=== PATIENT | male | born 1945 | race Caucasian/White ===

== ENCOUNTER 2023-10-07 12:15 | Inpatient (IN) ==
[2023-10-07] MEDS: SODIUM CHLORIDE 0.9% 1,000 ML IV STA (12:49)
[2023-10-07 13:14] LABS: Basophils # (auto) 0.03 K/uL (0.00-0.20); Basophils % (auto) 0.4 %; Eosinophils # (auto) 0.24 K/uL (0.00-0.50); Eosinophils % (auto) 3.2 %; Hematocrit (blood only) 35.3 % (42.0-52.0); Hemoglobin 12.3 g/dl (14.0-18.0); Immature Granulocytes # (auto) 0.08 K/uL (0.01-0.20); Immature Granulocytes % (auto) 1.1 %; Lymphocytes # (auto) 1.31 K/uL (1.20-3.40); Lymphocytes % (auto) 17.2 %; Mean Corpuscular Hemoglobin 30.8 pg (25.0-34.0); Mean Corpuscular Hgb Conc 34.8 g/dL (32.0-36.0); Mean Corpuscular Volume 88.5 fL (80.0-100.0); Monocytes # (auto) 0.69 K/uL (0.11-0.59); Monocytes % (auto) 9.1 %; Neutrophils # (auto) 5.26 K/uL (1.40-6.50); Platelet Count 193 K/uL (130-400); RDW Coefficient of Variation 12.7 % (11.5-14.5); RDW Standard Deviation 41.1 fL (36.4-46.3); Red Blood Count 3.99 M/uL (4.70-6.10); White Blood Count 7.61 K/ul (4.8-10.8)
[2023-10-07 13:16] LABS: Albumin Globulin Ratio 1.6 (0.9-2); Albumin Level 4.1 gm/dl (3.4-5.0); BUN Creatinine Ratio 14.6 (10-20); Bilirubin,Total 0.5 mg/dl (0.2-1.0); Calcium 8.7 mg/dl (8.6-10.3); Creatinine Clr Calc Pharmacy 74.4 ml/min; Est GFR (African American) 86.2 ml/min; Est GFR (Non-African American) 74.4 ml/min; Globulin 2.5 gm/dl (2.5-4.0); Potassium 3.9 mmol/L (3.5-5.1); Total Protein 6.6 gm/dl (6.0-8.3)
[2023-10-07 13:22] LABS: INR 1.1 (0.9-1.1); Partial Thromboplastin Ratio 0.9; Partial Thromboplastin Time 25 Seconds (21-31); Prothrombin Time 11.4 Seconds (9.0-12.0)
[2023-10-07] MEDS: OPTIRAY 320 100ml IV ONE (13:54)
--- NOTE | 2023-10-07 14:33 | CT Scan Report ---
CT abd pelvis IV con only CLINICAL HISTORY: GIB x 3-4 days, ?upper TECHNIQUE: Helical axial images of the abdomen and pelvis were obtained and displayed. Automated dose lowering techniques and/or adjustment according to patient size were utilized for this exam. This e xam was performed with intravenous contrast. CT DOSE: 1497.36 mGy.cm COMPARISON: None available at the time of this dictation. FINDINGS: Lower chest: Bibasilar atelectasis versus scarring is seen. Liver: Hepatic steatosis is noted. Focal fatty changes are seen about the falciform ligament. Gallbladder and biliary tree: Patient is status post cholecystectomy. No intra- or extrahepatic bilia ry ductal dilation. Pancreas: The pancreas is atrophic. Spleen: Splenule is incidentally noted. Adrenals: Unremarkable. Kidneys and ureters: Subcentimeter hypodensities are too small to characterize. Bladder: Unremarkable. Reproductive organs: Prostatomegaly is seen. Bowel: Diverticulosis is seen without diverticulitis. The appendix is normal. Lymph nodes Retroperitoneal: Unremarkable. Pelvic: Unremarkable. Mesenteric: Unremarkable. Peritoneum: Normal. Vessels: Atherosclerotic calcifications are seen. IVC filter is seen. Abdominal wall: A fat-containing umbilical hernia is seen. Bones: Degenerative changes in the visualized spine. IMPRESSION: 1. No acute abnormalities to explain GI bleed. 2. Diverticulosis without diverticulitis. 3. Hepatic steatosis. 4. Additional findings as above. ACT 112: Negative or not required by law. Electronically signed by: Harlan Ferreira M.D. 10/07/2023 2:32 PM
--- NOTE | 2023-10-07 15:02 | History & Physical Report ---
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 Seen in on 10/04/2023 for rectal bleeding. At that time had Hgb of 15 and INR of 2.6 and was given Vitamin K 5mg po. Warfarin has been held. Still taking 81mg aspirin Suspect upper GI bleed with melena In ER hypertensive, otherwise vitals stable. Hgb: 12 from 15 on 10/04/2023, INR: 1.1 +Hemoccult stool in ER of dark red tinge color stool reported Start PPI IV Type and cross and hold PRBC's. Monitor H&H Clear liquid diet NPO midnight Hold aspirin and warfarin GI consult CBC, BMP in am Blood consent was obtained from the patient as delegated by Dr. Campa. Risks and benefits were explained. All questions were answered, and the patient (or patient delegate) was offered the opportunity to discuss with attending physician and declined. (2) History of DVT (deep vein thrombosis): (3) History of pulmonary embolus (PE): Plan: Reported history DVT and PE in 2007. IVC Filter in place Chronically anticoagulated on warfarin Patient thinks had coagulable workup in past but no records available Hold warfarin (4) HTN (hypertension): Plan: Continue valsartan-HCTZ DVT Prophylaxis SCDs Admit med/tele Full Code as per discussion with patient Follows with Dr Luis Buchanan in [place], [place] for routine care Pt was seen and care coordinated with Dr Campa. See addendum I spent a total of 77 minutes reviewing notes, outpatient records, labs, medication, coordinating, documenting and providing care for this patient excluding time spent in the performance of separately billed services. 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 Patient is from out of town and is here camping. Patient states several days ago started with sensation of needing to have BM and it was dark in coloration and loose with very little stool reported. Per chart review was seen at [facility] ER on 10/04/2023 for rectal bleeding. At that time had Hgb of 15 and INR of 2.6. Was hypertensive, otherwise vital stable. Patient was given 5 mg oral vitamin K and decision was made for discharge home. He has held his Coumadin and has continued aspirin 81mg daily. Reports on aspirin as preventative. Denies recent NSAID use. States initially was having dark almost tarry like movements every 5 hours but feels things have lessened. Reports ongoing dark red and less black noted on toilet paper with wiping. Is not coloring toilet water now. He feels there is more stool mixed in than earlier in the week. Denies any abdominal pain or rectal pain. Denies indigestion symptoms. Reports approximately 3 years ago had bright red blood per rectum and was sent to [facility] in [place] and states had colonoscopy that time and states was "ok" and states did not require blood transfusion. He is unsure if has had EGD in past. Denies fever/chills, diaphoresis, N/V, SIMPSON, dizziness, syncope, vision changes, neck pain, CP, SOB, orthopnea, palpitations, cough, rhinorrhea, paresthesias, weakness, extremity edema, rashes, dysuria, hematuria. Allergies Allergy/AdvReac Type Severity Reaction Status Date / Time No Known Allergies Allergy Unverified 10/04/23 20:36 Home Medications Medication Instructions Recorded Confirmed Type aspirin 81 mg tablet,delayed 81 mg PO PM 10/07/23 10/07/23 History release cholecalciferol (vitamin D3) 1,250 1,250 mcg PO WK 10/07/23 10/07/23 History mcg (50,000 unit) capsule solifenacin 10 mg tablet 10 mg PO PM 10/07/23 10/07/23 History valsartan 320 1 tab PO DAILY 10/07/23 10/07/23 History mg-hydrochlorothiazide 12.5 mg tablet (Diovan HCT) warfarin 5 mg tablet (Jantoven) 7.5 mg PO UD 10/07/23 10/07/23 History warfarin 5 mg tablet (Jantoven) 10 mg PO UD 10/07/23 10/07/23 History Past Med/Surg History Problem List (Updated 10/07/23 @ 16:19 by Maine Nino PA-C) History of pulmonary embolus (PE) History of DVT (deep vein thrombosis) GI bleed Medical History Melanoma Neck. Had removed. No chemo/radiation HTN (hypertension) Presence of IVC filter Surgical History History of cholecystectomy Family History Brother Heart disease Sister Lung cancer Social History Smoking Status: Never smoker Hx Alcohol Use: No Hx Substance Use: No Feels Safe at Home: Yes Review of Systems Review of Systems: All systems reviewed & are unremarkable except as noted in HPI & below Physical Exam Physical Exam: General: no distress, obese elderly male Head: normocephalic, atraumatic Eyes: conjunctiva non-injected, anicteric ENT: normal inspection external ears, nose, mucous membranes moist Neck: supple, trachea midline Lungs: clear, no respiratory distress, no wheezing/rhonchi/rales CV: RRR, no murmur, no pretibial edema Abd: protuberant, normal BS, soft, non-tender Ext: no cyanosis, no calf tenderness Neuro: A&O x 3, no focal deficits noted, normal affect Skin: warm, dry Results & Data Results & Data Vital Signs (Past 12 Hours) Vital Signs Temp Pulse Resp BP Pulse Ox O2 Del Method 10/07/23 12:45 Room Air 10/07/23 12:45 18 10/07/23 12:42 66 10/07/23 12:20 36.6 C 77 18 170/87 H 96 Room Air Laboratory Results Short CBC 10/07/23 Range/Units 12:40 WBC 7.61 (4.8-10.8) K/ul Hgb 12.3 L (14.0-18.0) g/dl Hct 35.3 L (42.0-52.0) % Plt Count 193 (130-400) K/uL BMP 10/07/23 12:40 Sodium 140 Potassium 3.9 Chloride 104 Carbon Dioxide 30 BUN 14 Creatinine 0.96 Glucose 110 H Calcium 8.7 Liver Function 10/07/23 Range/Units 12:40 Total Bilirubin 0.5 (0.2-1.0) mg/dl AST 15 (13-39) U/L ALT 14 (7-52) U/L Alkaline Phosphatase 63 (34-104) U/L Albumin 4.1 (3.4-5.0) gm/dl Diagnostic Findings Abdomen/Pelvis CT 10/07/23 13:16 CT abd pelvis IV con only CLINICAL HISTORY: GIB x 3-4 days, ?upper TECHNIQUE: Helical axial images of the abdomen and pelvis were obtained and displayed. Automated dose lowering techniques and/or adjustment according to patient size were utilized for this exam. This exam was performed with intravenous contrast. CT DOSE: 1497.36 mGy.cm COMPARISON: None available at the time of this dictation. FINDINGS: Lower chest: Bibasilar atelectasis versus scarring is seen. Liver: Hepatic steatosis is noted. Focal fatty changes are seen about the falciform ligament. Gallbladder and biliary tree: Patient is status post cholecystectomy. No intra- or extrahepatic biliary ductal dilation. Pancreas: The pancreas is atrophic. Spleen: Splenule is incidentally noted. Adrenals: Unremarkable. Kidneys and ureters: Subcentimeter hypodensities are too small to characterize. Bladder: Unremarkable. Reproductive organs: Prostatomegaly is seen. Bowel: Diverticulosis is seen without diverticulitis. The appendix is normal. Lymph nodes Retroperitoneal: Unremarkable. Pelvic: Unremarkable. Mesenteric: Unremarkable. Peritoneum: Normal. Vessels: Atherosclerotic calcifications are seen. IVC filter is seen. Abdominal wall: A fat-containing umbilical hernia is seen. Bones: Degenerative changes in the visualized spine. IMPRESSION: 1. No acute abnormalities to explain GI bleed. 2. Diverticulosis without diverticulitis. 3. Hepatic steatosis. 4. Additional findings as above. ACT 112: Negative or not required by law. Electronically signed by: Harlan Ferreira M.D. 10/07/2023 2:32 PM ECG Additional Comments: sinus rhythm, incomplete RBBB per my interpretation Supervising Physician Co-Signing Physician Notes I have seen and discussed the case with the collaborating advanced practitioner. I agree with the above H&P. I have reviewed and confirmed the patients medical history, the findings on physical examination, and the patients diagnosis and treatment plan with Mica WINTERS and agree with the information documented. In short, Mr. 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 Denies abdominal pain, notes that it was bright red initially, but now black/tarry like stool. Denies abdominal pain. Hgb 15-->12 from 10/03. GENERAL APPEARANCE: AxOx4, generally well-appearing male, no acute distress. HEENT: NC, AT. MMM. EOMI, clear conjunctiva, oropharynx clear. NECK: Supple without lymphadenopathy. No stiffness or restricted ROM. HEART: Normal rate and regular rhythm, normal S1/S1, no m/r/g LUNGS: CTAB, moving air well. No crackles or wheezes are heard. ABDOMEN: Soft, nontender, nondistended with good bowel sounds heard. BACK: No CVAT, no obvious deformity. EXTREMITIES: Without cyanosis, clubbing or edema. NEUROLOGICAL: Grossly nonfocal. Alert and oriented, moving all 4 extremities. CN not formally tested but appear grossly intact. Skin: Warm and dry without any rash. #Melena #Acute anemia 2/[address] negative on admission Start protonix drip Blood transfusion consent complete GI consult, CLD for now NPO midnight #Prior DVT #Chronic anticoagulation reports history "years ago" and denies "clotting disorder", unsure circumstances of prolonged continuation IVC filter in place hold warfarin rest of plan in place I spent a total of 35 minutes coordinating, documenting, and providing care for this patient excluding time spent in the performance of separately billed services. All of the aforementioned completed outside of collaborating with the assigned advanced practitioner for a full treatment plan. I have reviewed the advanced practitioner's documentation, and I agree with, and take responsibility for the plan of care
--- NOTE | 2023-10-07 15:16 | Emergency Department Note ---
Impression & Plan GIB (gastrointestinal bleeding), Drop in hemoglobin ED Provider Note CHIEF COMPLAINT: Rectal bleeding HISTORY OF PRESENT ILLNESS: This 78-year-old male patient with past medical history of obesity, DVT on Coumadin, and hypertension bright red blood per rectum presents emergency department with complaints of worsening bleeding. He was seen here several days ago and advised to stop taking his Coumadin. His hemoglobin was 15 at that time. Patient denies any significant abdominal pain or tenderness. He has not had any fevers. He notices the blood only when having a bowel movement and states that the stool is dark to red. He denies any blood in the toilet bowl or in his underwear. Patient states he is from [facility]. He is currently staying at [facility]. He contacted his PCPs office today and stated that there physician does not in the office today and that he should report back to the emergency department. Patient states he was maybe a little more fatigued and slightly dizzy this morning, but did not not have any other symptoms. REVIEW OF SYSTEMS: A review of systems was performed with positives and pertinent negatives listed in the history of present illness. 10 systems were reviewed and are otherwise negative. ALLERGIES: see below MEDICATIONS: see below PMH: see below SOCIAL HISTORY: see below DDx: Diverticulitis, hemorrhoidal bleed, upper GI bleed, peptic ulcer disease, colonic mass among others. PHYSICAL EXAM: Vital signs reviewed. General: Well-appearing 78-year-old male, in no significant distress. HEENT: No scleral icterus, PERRLA, neck supple. Moist mucous membranes. Cardiovascular: Regular rate and rhythm, no extra sounds. Pulmonary: Clear to auscultation bilaterally, normal work of breathing. Abdomen: Soft, obese, nontender, nondistended, positive bowel sounds. Musculoskeletal: Atraumatic, no peripheral edema. GI: Normal external rectal mucosa, guaiac positive dark red, soft and pasty stool. No palpable mass. Neurologic: Patient awake alert and oriented x 3, speech is clear Skin: Warm, dry, no rash EMERGENCY DEPARTMENT COURSE/MDM: This patient was evaluated and appeared to be in no significant distress. IV access was obtained and laboratory work was drawn. Patient was placed on the vehicle monitor technician and noted to be in a sinus rhythm. He has not been taking his Coumadin and INR is 1.1. Hemoglobin is noted to be 12.3 however this is a drop from his visit 2 days ago at 15. CT imaging of the abdomen pelvis was performed and reveals no evidence of acute diverticulitis. Stool is guaiac positive. Patient's vital signs have remained stable. Given his 3 point drop in his hemoglobin despite being off of his anticoagulant, I feel it is in his best interest to be evaluated by the hospitalist service for admission and likely GI consultation. Patient and were made aware of this plan and agreed. MONITORING: An order for cardiac monitoring was placed and the patient is noted to be in a normal sinus rhythm at 66 beats per minute. RADIOLOGY: CT imaging of the abdomen pelvis: IMPRESSION: 1. No acute abnormalities to explain GI bleed. 2. Diverticulosis without diverticulitis. 3. Hepatic steatosis. 4. Additional findings as above. EKG: To my interpretation reveals a sinus rhythm with occasional PVCs at 68 bpm. Left axis deviation. Incomplete right bundle branch block. QTc of 433. Normal ST segments. PVCs are now present when compared to previous dated October 04, 2023. DISPOSITION: Admission Past Med/Surg History Problem List (Updated 10/11/23 @ 12:17 by Dahiana Yusuf MD) Drop in hemoglobin (Acute) GIB (gastrointestinal bleeding) (Acute) History of pulmonary embolus (PE) History of DVT (deep vein thrombosis) GI bleed Medical History Melanoma Neck. Had removed. No chemo/radiation HTN (hypertension) Presence of IVC filter Surgical History History of cholecystectomy Family History Brother Heart disease Sister Lung cancer Social History Smoking Status: Former smoker Hx Alcohol Use: No Hx Substance Use: No Preferred Language: Khmer Communication Ability: Effective Cleaner Wall Required: No Beliefs That Will Affect Care: None Current Living Situation: Spouse Feels Safe at Home: Yes Safety Concerns: Feels Safe At This Time Allergies Allergies Allergy/AdvReac Type Severity Reaction Status Date / Time No Known Allergies Allergy Unverified 10/04/23 20:36 Home Meds Home Medications Medication Instructions Recorded Confirmed aspirin 81 mg tablet,delayed 81 mg PO PM 10/07/23 10/07/23 release cholecalciferol (vitamin D3) 1,250 1,250 mcg PO WK 10/07/23 10/07/23 mcg (50,000 unit) capsule solifenacin 10 mg tablet 10 mg PO PM 10/07/23 10/07/23 valsartan 320 1 tab PO DAILY 10/07/23 10/07/23 mg-hydrochlorothiazide 12.5 mg tablet (Diovan HCT) warfarin 5 mg tablet (Jantoven) 7.5 mg PO UD 10/07/23 10/07/23 warfarin 5 mg tablet (Jantoven) 10 mg PO UD 10/07/23 10/07/23 Previous Rx's Medication Instructions Recorded enoxaparin 120 mg/0.8 mL 111 mg (0.74 mL) subcut Q12H 3 10/10/23 subcutaneous syringe (Lovenox) days #4.44 mL pantoprazole 40 mg tablet,delayed 40 mg PO BID #60 tabs 10/10/23 release Results & Data (ED) Vital Signs Vital Signs - 24 hr 10/07/23 12:20 10/07/23 12:42 10/07/23 12:45 Temperature 36.6 C Temperature Source Temporal Artery Scan Pulse Rate 77 66 Respiratory Rate 18 18 Respiratory Effort / Characteristics Non-Labored Non-Labored Respiratory Depth Normal Normal Blood Pressure 170/87 H Blood Pressure Mean 114 Pulse Oximetry 96 Oxygen Delivery Method Room Air Sepsis Recent Fever Within 48 Hours No Sepsis New/Unexplained Change in Mental Status No Sepsis Action Taken by Nursing No Action Required 10/07/23 12:45 Temperature Temperature Source Pulse Rate Respiratory Rate Respiratory Effort / Characteristics Respiratory Depth Blood Pressure Blood Pressure Mean Pulse Oximetry Oxygen Delivery Method Room Air Sepsis Recent Fever Within 48 Hours Sepsis New/Unexplained Change in Mental Status Sepsis Action Taken by Longterm Medications Current Medication List: was personally reviewed by me Laboratory Data Attestation: I reviewed the patient's lab results. 10/09/23 09:21 10/09/23 05:40 Lab Results 10/07/23 10/07/23 Range/Units 12:40 14:39 WBC 7.61 (4.8-10.8) K/ul RBC 3.99 L (4.70-6.10) M/uL Hgb 12.3 L (14.0-18.0) g/dl Hct 35.3 L (42.0-52.0) % MCV 88.5 (80.0-100.0) fL MCH 30.8 (25.0-34.0) pg MCHC 34.8 (32.0-36.0) g/dL RDW Std Deviation 41.1 (36.4-46.3) fL RDW Coeff of Susan 12.7 (11.5-14.5) % Plt Count 193 (130-400) K/uL MPV 10.0 (9.4-12.4) fL Immature Gran % (Auto) 1.1 % Neut % (Auto) 69.0 % Lymph % (Auto) 17.2 % [place] % (Auto) 9.1 % Eos % (Auto) 3.2 % Baso % (Auto) 0.4 % Neut # (Auto) 5.26 (1.40-6.50) K/uL Lymph # (Auto) 1.31 (1.20-3.40) K/uL [place] # (Auto) 0.69 H (0.11-0.59) K/uL Eos # (Auto) 0.24 (0.00-0.50) K/uL Baso # (Auto) 0.03 (0.00-0.20) K/uL Immature Gran # (Auto) 0.08 (0.01-0.20) K/uL PT 11.4 (9.0-12.0) Seconds INR 1.1 (0.9-1.1) APTT 25 (21-31) Seconds PTT Ratio 0.9 Sodium 140 (136-145) mmol/L Potassium 3.9 (3.5-5.1) mmol/L Chloride 104 (98-107) mmol/L Carbon Dioxide 30 (21-32) mmol/L Anion Gap 6 (3-11) BUN 14 (6-23) mg/dl Creatinine 0.96 (0.6-1.4) mg/dl Est Cr Clr Drug Dosing 74.4 ml/min Est GFR ( Amer) 86.2 ml/min Est GFR (Non-Af Amer) 74.4 ml/min BUN/Creatinine Ratio 14.6 (10-20) Glucose 110 H (70-99(Fasting)) mg/dl Calcium 8.7 (8.6-10.3) mg/dl Total Bilirubin 0.5 (0.2-1.0) mg/dl AST 15 (13-39) U/L ALT 14 (7-52) U/L Alkaline Phosphatase 63 (34-104) U/L Total Protein 6.6 (6.0-8.3) gm/dl Albumin 4.1 (3.4-5.0) gm/dl Globulin 2.5 (2.5-4.0) gm/dl Albumin/Globulin Ratio 1.6 (0.9-2) POC Stool Occult Blood Positive A (Negative) Administered Medications Discontinued Medications Enoxaparin Sodium (Enoxaparin Inj 120 Mg/0.8 Ml Syr) 111 mg SQ Q12H CODY Stop: 11/09/23 07:59 Last Admin: 10/10/23 09:38 Dose: 111 mg Documented By: TRICIA Heparin Sodium/Dextrose (Heparin Iv Adult Wt-Based Low-Dose *No* Initial Bolus Protocol) 1 each IV ONE STA; Protocol Stop: 10/09/23 08:01 Last Admin: 10/09/23 10:24 Dose: Not Given Documented By: AMAIRANI Hydrochlorothiazide (Hydrochlorothiazide 25 Mg Tab) 12.5 mg PO DAILY CODY Stop: 11/07/23 08:59 Last Admin: 10/08/23 07:54 Dose: 12.5 mg Documented By: AMAIRANI Sodium Chloride (Nss) 1,000 mls @ 125 mls/hr IV .Q8H STA Stop: 10/07/23 20:33 Last Infusion: 10/07/23 21:00 Dose: Infused Documented By: Admin: 10/07/23 12:49 Dose: 125 mls/hr Documented By: LIO Pantoprazole Sodium 40 mg/ (Dextrose) 100 mls @ 20 mls/hr IV Q5H CODY Stop: 11/06/23 15:59 Last Infusion: 10/09/23 08:04 Dose: Infused Documented By: Admin: 10/09/23 08:03 Dose: 8 mg/hr, 20 mls/hr Documented By: Infusion: 10/09/23 07:55 Dose: Infused Documented By: Admin: 10/09/23 02:55 Dose: 8 mg/hr, 20 mls/hr Documented By: Infusion: 10/09/23 02:52 Dose: Infused Documented By: Admin: 10/08/23 21:52 Dose: 8 mg/hr, 20 mls/hr Documented By: Infusion: 10/08/23 21:52 Dose: Infused Documented By: Admin: 10/08/23 17:32 Dose: 8 mg/hr, 20 mls/hr Documented By: Infusion: 10/08/23 17:32 Dose: Infused Documented By: Admin: 10/08/23 12:38 Dose: 8 mg/hr, 20 mls/hr Documented By: Infusion: 10/08/23 11:32 Dose: Infused Documented By: Admin: 10/08/23 06:37 Dose: 8 mg/hr, 20 mls/hr Documented By: Infusion: 10/08/23 06:37 Dose: Infused Documented By: Admin: 10/08/23 01:46 Dose: 8 mg/hr, 20 mls/hr Documented By: Infusion: 10/08/23 01:46 Dose: Infused Documented By: Admin: 10/07/23 20:40 Dose: 8 mg/hr, 20 mls/hr Documented By: Infusion: 10/07/23 20:40 Dose: Infused Documented By: Admin: 10/07/23 15:52 Dose: 8 mg/hr, 20 mls/hr Documented By: MES Pantoprazole Sodium 80 mg/ (Dextrose) 120 mls @ 480 mls/hr IV NOW ONE Stop: 10/07/23 15:59 Last Infusion: 10/07/23 16:23 Dose: Infused Documented By: Admin: 10/07/23 15:50 Dose: 480 mls/hr Documented By: MES Heparin Sodium/Dextrose (Heparin Sodium/Dextrose) 25,000 units in 500 mls @ 27 mls/hr IV .[id number] [facility]; Protocol Stop: 11/08/23 08:14 Last Titration: 10/10/23 08:26 Dose: Infused Documented By: TRICIA Co-signed By: AMS Admin: 10/10/23 06:38 Dose: 1,350 units/hr, 27 mls/hr Documented By: UMESH Co-signed By: MANI Titration: 10/10/23 06:38 Dose: Infused Documented By: UMESH Co-signed By: MANI Titration: 10/09/23 23:41 Dose: 1,250 units/hr, 25 mls/hr Documented By: UMESH Co-signed By: MANI Titration: 10/09/23 19:10 Dose: 1,150 units/hr, 23 mls/hr Documented By: UMESH Co-signed By: AMAIRANI Titration: 10/09/23 17:16 Dose: 1,150 units/hr, 23 mls/hr Documented By: AMAIRANI Co-signed By: CASSANDRA Admin: 10/09/23 10:02 Dose: 1,000 units/hr, 20 mls/hr Documented By: AMAIRANI Co-signed By: CASSANDRA Heparin Sodium (Porcine) 3,000 (units/ Syringe) 3 mls @ 10 mls/min IV NOW ONE Stop: 10/09/23 17:01 Last Admin: 10/09/23 17:16 Dose: 10 mls/min Documented By: AMAIRANI Co-signed By: CASSANDRA Ioversol (Optiray 320 100ml) 93 ml IV ONCE ONE Stop: 10/07/23 13:55 Last Admin: 10/07/23 13:54 Dose: 93 ml Documented By: TODD Oxybutynin Chloride (Oxybutynin Chloride Xl 5 Mg Tabcr) 10 mg PO PM CODY Stop: 11/06/23 20:59 Last Admin: 10/09/23 20:09 Dose: 10 mg Documented By: Admin: 10/08/23 20:08 Dose: 10 mg Documented By: Admin: 10/07/23 20:39 Dose: 10 mg Documented By: SHANIA Pantoprazole Sodium (Pantoprazole 40 Mg Tab) 40 mg PO BID CODY Stop: 11/08/23 08:59 Last Admin: 10/10/23 08:52 Dose: 40 mg Documented By: Admin: 10/09/23 20:09 Dose: 40 mg Documented By: Admin: 10/09/23 09:53 Dose: 40 mg Documented By: AMAIRANI Valsartan (Valsartan 80 Mg Tab) 320 mg PO DAILY CODY Stop: 11/07/23 08:59 Last Admin: 10/08/23 07:54 Dose: Not Given Documented By: AMAIRANI Valsartan (Valsartan/Hctz 320/12.5 Mg Tab) 1 tab PO DAILY CODY Stop: 11/08/23 08:59 Last Admin: 10/10/23 08:52 Dose: 1 tab Documented By: Admin: 10/09/23 09:53 Dose: 1 tab Documented By: AMAIRANI Warfarin Sodium (Warfarin Sod 7.5 Mg Tab) 7.5 mg PO [id number] CODY Stop: 11/07/23 15:59 Last Admin: 10/09/23 16:17 Dose: 7.5 mg Documented By: Admin: 10/08/23 16:13 Dose: 7.5 mg Documented By: AMAIRANI Imaging Data Radiologist's Impression: Abdomen/Pelvis CT 10/07/23 13:16 CT abd pelvis IV con only CLINICAL HISTORY: GIB x 3-4 days, ?upper TECHNIQUE: Helical axial images of the abdomen and pelvis were obtained and displayed. Automated dose lowering techniques and/or adjustment according to patient size were utilized for this exam. This exam was performed with intravenous contrast. CT DOSE: 1497.36 mGy.cm COMPARISON: None available at the time of this dictation. FINDINGS: Lower chest: Bibasilar atelectasis versus scarring is seen. Liver: Hepatic steatosis is noted. Focal fatty changes are seen about the falciform ligament. Gallbladder and biliary tree: Patient is status post cholecystectomy. No intra- or extrahepatic biliary ductal dilation. Pancreas: The pancreas is atrophic. Spleen: Splenule is incidentally noted. Adrenals: Unremarkable. Kidneys and ureters: Subcentimeter hypodensities are too small to characterize. Bladder: Unremarkable. Reproductive organs: Prostatomegaly is seen. Bowel: Diverticulosis is seen without diverticulitis. The appendix is normal. Lymph nodes Retroperitoneal: Unremarkable. Pelvic: Unremarkable. Mesenteric: Unremarkable. Peritoneum: Normal. Vessels: Atherosclerotic calcifications are seen. IVC filter is seen. Abdominal wall: A fat-containing umbilical hernia is seen. Bones: Degenerative changes in the visualized spine. IMPRESSION: 1. No acute abnormalities to explain GI bleed. 2. Diverticulosis without diverticulitis. 3. Hepatic steatosis. 4. Additional findings as above. ACT 112: Negative or not required by law. Electronically signed by: Harlan Ferreira M.D. 10/07/2023 2:32 PM Discharge Plan Visit Data Chief Complaint: GI Bleed Stated Complaint: STILL BLEEDING RECTAL ED Provider: Dahiana Yusuf Discharge Problem: GIB (gastrointestinal bleeding), Drop in hemoglobin Patient Disposition: Admitted As Inpatient Discharge Instructions Interventions: ED Discharge Assessment Last Done: 10/07/23 17:45 Discharge Problem: GIB (gastrointestinal bleeding) Qualifiers: GI bleed type/associated pathology: unspecified gastrointestinal hemorrhage type Qualified Code(s): K92.2 - Gastrointestinal hemorrhage, unspecified
[2023-10-07] MEDS ORDERED: PANTOPRAZOLE BOLUS/DRIP IV STA (15:31)
[2023-10-07] MEDS: PANTOprazole 80 MG in DEXTROSE 5% 100 ML IV ONE (15:50)
[2023-10-07] MEDS: PANTOprazole 40 MG in DEXTROSE 5% MINI-B 100 ML IV SCH (15:52)
[2023-10-07] MEDS ORDERED: SODIUM CHLORIDE 0.9% 250 ML IV PRN (18:57)
[2023-10-07] MEDS ORDERED: ACETAMINOPHEN 325 MG TAB PO PRN (18:57)
[2023-10-07] MEDS ORDERED: ONDANSETRON INJ 2 MG/ML 2 ML VIAL IV PRN (18:57)
[2023-10-07] MEDS: OXYBUTYNIN CHLORIDE XL 5 MG TABCR PO SCH (20:39)
--- NOTE | 2023-10-07 21:23 | Electrocardiogram Report ---
Test Reason : Blood Pressure : / mmHG Vent. Rate : 068 BPM Atrial Rate : 068 BPM P-R Int : 206 ms QRS Dur : 094 ms QT Int : 408 ms P-R-T Axes : 046 -69 050 degrees QTc Int : 433 ms Sinus rhythm with occasional Premature ventricular complexes Left axis deviation Incomplete right bundle branch block Abnormal ECG When compared with ECG of 04-OCT-2023 18:20, Premature ventricular complexes are now Present Confirmed by Daniel Hogan ([id number]) on 10/07/2023 9:23:30 PM Referred By: REFERRED SELF Confirmed By:Daniel Hogan
[2023-10-08 06:51] LABS: Hematocrit (blood only) 34.6 % (42.0-52.0); Hemoglobin 11.7 g/dl (14.0-18.0); Mean Corpuscular Hemoglobin 29.9 pg (25.0-34.0); Mean Corpuscular Hgb Conc 33.8 g/dL (32.0-36.0); Mean Corpuscular Volume 88.5 fL (80.0-100.0); Mean Platelet Volume 9.8 fL (9.4-12.4); Platelet Count 172 K/uL (130-400); RDW Coefficient of Variation 12.9 % (11.5-14.5); RDW Standard Deviation 41.3 fL (36.4-46.3); Red Blood Count 3.91 M/uL (4.70-6.10); White Blood Count 6.17 K/ul (4.8-10.8)
[2023-10-08 07:21] LABS: BUN Creatinine Ratio 10.4 (10-20); Calcium 8.3 mg/dl (8.6-10.3); Creatinine Clr Calc Pharmacy 73.2 ml/min; Est GFR (African American) 86.2 ml/min; Est GFR (Non-African American) 74.4 ml/min
[2023-10-08 07:23] LABS: Prothrombin Time 11.3 Seconds (9.0-12.0)
[2023-10-08] MEDS: hydroCHLOROthiazide 25 MG TAB PO SCH (07:54)
[2023-10-08] MEDS: VALSARTAN 80 MG TAB PO SCH (07:54)
--- NOTE | 2023-10-08 10:09 | Gastrointestinal Consultation ---
Date of Consultation October 08, 2023 Assessment & Plan (1) GI bleed: Pleasant man from [place] of town with a GI bleed that for all intents and purposes seems to have stopped. However decision needs to be made quickly about restarting anticoagulants. He has had colonoscopy for similar issues two years ago so will do EGD. He has no risk factors for ulcer disease though. His INR earlier this week was not out of sorts so I don't think this is bleeding just from coumadin. If this is negative his doctors at home probably should consider WCE. History of Present Illness Reason for Consultation: melena Attending Physician: Gab Morales MD History of Present Illness 78 year old man visiting from [place] who started having black tarry stools a few days ago. He came to the ER and all was stable so he was sent home. He continued to bleed although the stools formed up they are still black. H/H have dropped a little. He denies abdominal pain. He denies NSAID usage. He had a similar episode two years ago but that time it was hematochezia. He had a colonoscopy in [place] but they didn't see anything. He is on warfarin and when he is off for a day or two will start throwing clots. He has had an EGD but it was many years ago. He denies heartburn and indigestion as well. Allergies Allergy/AdvReac Type Severity Reaction Status Date / Time No Known Allergies Allergy Unverified 10/04/23 20:36 Home Medications Medication Instructions Recorded Confirmed Type aspirin 81 mg tablet,delayed 81 mg PO PM 10/07/23 10/07/23 History release cholecalciferol (vitamin D3) 1,250 1,250 mcg PO WK 10/07/23 10/07/23 History mcg (50,000 unit) capsule solifenacin 10 mg tablet 10 mg PO PM 10/07/23 10/07/23 History valsartan 320 1 tab PO DAILY 10/07/23 10/07/23 History mg-hydrochlorothiazide 12.5 mg tablet (Diovan HCT) warfarin 5 mg tablet (Jantoven) 7.5 mg PO UD 10/07/23 10/07/23 History warfarin 5 mg tablet (Jantoven) 10 mg PO UD 10/07/23 10/07/23 History Patient History Medical History Melanoma Neck. Had removed. No chemo/radiation HTN (hypertension) Presence of IVC filter Surgical History History of cholecystectomy Family History Brother Heart disease Sister Lung cancer Social History Smoking Status: Former smoker Hx Alcohol Use: No Hx Substance Use: No Preferred Language: Malaysian Communication Ability: Effective Director Inbound Sales Required: No Beliefs That Will Affect Care: None Current Living Situation: Spouse Feels Safe at Home: Yes Safety Concerns: Feels Safe At This Time Review of Systems Review of Systems: All systems reviewed & are unremarkable except as noted in HPI & below Physical Exam Constitutional: WD/WN, vitals as above + obese Neck: trachea midline, no thyromegaly Respiratory: normal respiratory effort, lungs clear to auscultation Cardiovascular: RRR, no murmur, no edema Gastrointestinal (Abdomen): normal bowel sounds, soft, nontender, no hepatosplenomegaly Results & Data Vital Signs (Past 12 Hours) Vital Signs Temp Pulse Pulse Pulse Resp BP Pulse Ox 10/08/23 09:21 10/08/23 08:24 36.7 C 60 20 166/90 H 95 10/08/23 07:10 80 10/08/23 02:07 36.4 C L 67 16 164/87 H 92 10/07/23 22:59 62 10/07/23 22:54 36.6 C 75 18 171/89 H 99 O2 Del Method 10/08/23 09:21 Room Air 10/08/23 08:24 Room Air 10/08/23 07:10 10/08/23 02:07 Room Air 10/07/23 22:59 10/07/23 22:54 Room Air Laboratory Results 10/08/23 10/07/23 10/07/23 Range/Units 06:03 19:48 14:39 WBC 6.17 (4.8-10.8) K/ul RBC 3.91 L (4.70-6.10) M/uL Hgb 11.7 L (14.0-18.0) g/dl Hct 34.6 L (42.0-52.0) % MCV 88.5 (80.0-100.0) fL MCH 29.9 (25.0-34.0) pg MCHC 33.8 (32.0-36.0) g/dL RDW Std Deviation 41.3 (36.4-46.3) fL RDW Coeff of Susan 12.9 (11.5-14.5) % Plt Count 172 (130-400) K/uL MPV 9.8 (9.4-12.4) fL Immature Gran % (Auto) % Neut % (Auto) % Lymph % (Auto) % [place] % (Auto) % Eos % (Auto) % Baso % (Auto) % Neut # (Auto) (1.40-6.50) K/uL Lymph # (Auto) (1.20-3.40) K/uL [place] # (Auto) (0.11-0.59) K/uL Eos # (Auto) (0.00-0.50) K/uL Baso # (Auto) (0.00-0.20) K/uL Immature Gran # (Auto) (0.01-0.20) K/uL PT 11.3 (9.0-12.0) Seconds INR 1.0 (0.9-1.1) APTT (21-31) Seconds PTT Ratio Sodium 140 (136-145) mmol/L Potassium 4.0 (3.5-5.1) mmol/L Chloride 104 (98-107) mmol/L Carbon Dioxide 32 (21-32) mmol/L Anion Gap 4 (3-11) BUN 10 (6-23) mg/dl Creatinine 0.96 (0.6-1.4) mg/dl Est Cr Clr Drug Dosing 73.2 ml/min Est GFR ( Amer) 86.2 ml/min Est GFR (Non-Af Amer) 74.4 ml/min BUN/Creatinine Ratio 10.4 (10-20) Glucose 130 H (70-99(Fasting)) mg/dl Calcium 8.3 L (8.6-10.3) mg/dl Total Bilirubin (0.2-1.0) mg/dl AST (13-39) U/L ALT (7-52) U/L Alkaline Phosphatase (34-104) U/L Total Protein (6.0-8.3) gm/dl Albumin (3.4-5.0) gm/dl Globulin (2.5-4.0) gm/dl Albumin/Globulin Ratio (0.9-2) POC Stool Occult Blood Positive A (Negative) Blood Type A Positive Antibody Screen NEGATIVE Crossmatch See Detail 10/07/23 Range/Units 12:40 WBC 7.61 (4.8-10.8) K/ul RBC 3.99 L (4.70-6.10) M/uL Hgb 12.3 L (14.0-18.0) g/dl Hct 35.3 L (42.0-52.0) % MCV 88.5 (80.0-100.0) fL MCH 30.8 (25.0-34.0) pg MCHC 34.8 (32.0-36.0) g/dL RDW Std Deviation 41.1 (36.4-46.3) fL RDW Coeff of Susan 12.7 (11.5-14.5) % Plt Count 193 (130-400) K/uL MPV 10.0 (9.4-12.4) fL Immature Gran % (Auto) 1.1 % Neut % (Auto) 69.0 % Lymph % (Auto) 17.2 % [place] % (Auto) 9.1 % Eos % (Auto) 3.2 % Baso % (Auto) 0.4 % Neut # (Auto) 5.26 (1.40-6.50) K/uL Lymph # (Auto) 1.31 (1.20-3.40) K/uL [place] # (Auto) 0.69 H (0.11-0.59) K/uL Eos # (Auto) 0.24 (0.00-0.50) K/uL Baso # (Auto) 0.03 (0.00-0.20) K/uL Immature Gran # (Auto) 0.08 (0.01-0.20) K/uL PT 11.4 (9.0-12.0) Seconds INR 1.1 (0.9-1.1) APTT 25 (21-31) Seconds PTT Ratio 0.9 Sodium 140 (136-145) mmol/L Potassium 3.9 (3.5-5.1) mmol/L Chloride 104 (98-107) mmol/L Carbon Dioxide 30 (21-32) mmol/L Anion Gap 6 (3-11) BUN 14 (6-23) mg/dl Creatinine 0.96 (0.6-1.4) mg/dl Est Cr Clr Drug Dosing 74.4 ml/min Est GFR ( Amer) 86.2 ml/min Est GFR (Non-Af Amer) 74.4 ml/min BUN/Creatinine Ratio 14.6 (10-20) Glucose 110 H (70-99(Fasting)) mg/dl Calcium 8.7 (8.6-10.3) mg/dl Total Bilirubin 0.5 (0.2-1.0) mg/dl AST 15 (13-39) U/L ALT 14 (7-52) U/L Alkaline Phosphatase 63 (34-104) U/L Total Protein 6.6 (6.0-8.3) gm/dl Albumin 4.1 (3.4-5.0) gm/dl Globulin 2.5 (2.5-4.0) gm/dl Albumin/Globulin Ratio 1.6 (0.9-2) POC Stool Occult Blood (Negative) Blood Type Antibody Screen Crossmatch Diagnostic Findings Abdomen/Pelvis CT 10/07/23 13:16 CT abd pelvis IV con only CLINICAL HISTORY: GIB x 3-4 days, ?upper TECHNIQUE: Helical axial images of the abdomen and pelvis were obtained and displayed. Automated dose lowering techniques and/or adjustment according to patient size were utilized for this exam. This exam was performed with intravenous contrast. CT DOSE: 1497.36 mGy.cm COMPARISON: None available at the time of this dictation. FINDINGS: Lower chest: Bibasilar atelectasis versus scarring is seen. Liver: Hepatic steatosis is noted. Focal fatty changes are seen about the falciform ligament. Gallbladder and biliary tree: Patient is status post cholecystectomy. No intra- or extrahepatic biliary ductal dilation. Pancreas: The pancreas is atrophic. Spleen: Splenule is incidentally noted. Adrenals: Unremarkable. Kidneys and ureters: Subcentimeter hypodensities are too small to characterize. Bladder: Unremarkable. Reproductive organs: Prostatomegaly is seen. Bowel: Diverticulosis is seen without diverticulitis. The appendix is normal. Lymph nodes Retroperitoneal: Unremarkable. Pelvic: Unremarkable. Mesenteric: Unremarkable. Peritoneum: Normal. Vessels: Atherosclerotic calcifications are seen. IVC filter is seen. Abdominal wall: A fat-containing umbilical hernia is seen. Bones: Degenerative changes in the visualized spine. IMPRESSION: 1. No acute abnormalities to explain GI bleed. 2. Diverticulosis without diverticulitis. 3. Hepatic steatosis. 4. Additional findings as above. ACT 112: Negative or not required by law. Electronically signed by: Harlan Ferreira M.D. 10/07/2023 2:32 PM
--- NOTE | 2023-10-08 10:22 | Anesthesiology Consultation ---
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 Surgery Operation Date: 10/08/23 11:00 Proposed Procedures p Esophagogastroduodenoscopy - Carli Arrieta Jr, MD Height/Weight Height: 5 ft 7 in Weight: 111.8 kg Allergies Allergy/AdvReac Type Severity Reaction Status Date / Time No Known Allergies Allergy Unverified 10/04/23 20:36 Medications Home Medications Medication Instructions Recorded Confirmed Last Taken aspirin 81 mg tablet,delayed 81 mg PO PM 10/07/23 10/07/23 10/06/23 release cholecalciferol (vitamin D3) 1,250 1,250 mcg PO WK 10/07/23 10/07/23 10/01/23 mcg (50,000 unit) capsule solifenacin 10 mg tablet 10 mg PO PM 10/07/23 10/07/23 10/06/23 valsartan 320 1 tab PO DAILY 10/07/23 10/07/23 10/07/23 mg-hydrochlorothiazide 12.5 mg tablet (Diovan HCT) warfarin 5 mg tablet (Jantoven) 7.5 mg PO UD 10/07/23 10/07/23 10/03/23 warfarin 5 mg tablet (Jantoven) 10 mg PO UD 10/07/23 10/07/23 09/30/23 Active Medications Generic Name Dose Route Start Last Admin Trade Name Gagan PRN Reason Stop Dose Admin Hydrochlorothiazide 12.5 mg 10/08/23 09:00 10/08/23 07:54 Hydrochlorothiazide 25 Mg Tab PO 11/07/23 08:59 12.5 mg DAILY CODY Administration Pantoprazole Sodium 40 mg/ 100 mls @ 20 mls/hr 10/07/23 16:00 10/08/23 06:37 Dextrose IV 11/06/23 15:59 8 mg/hr Q5H CODY 20 mls/hr Administration 8 MG/HR Oxybutynin Chloride 10 mg 10/07/23 21:00 10/07/23 20:39 Oxybutynin Chloride Xl 5 Mg Tabcr PO 11/06/23 20:59 10 mg PM CODY Administration Valsartan 320 mg 10/08/23 09:00 10/08/23 07:54 Valsartan 80 Mg Tab PO 11/07/23 08:59 Not Given DAILY CODY Past Medical History Medical History Melanoma Neck. Had removed. No chemo/radiation HTN (hypertension) Presence of IVC filter Past Family History Family History Brother Heart disease Sister Lung cancer Past Surgical History Surgical History History of cholecystectomy Social History Smoking Status: Former smoker Hx Alcohol Use: No Hx Substance Use: No Physical Exam Vital Signs Last Vital Signs Temp 98.1 F 10/08/23 08:24 Pulse 60 10/08/23 08:24 Resp 20 10/08/23 08:24 BP 166/90 H 10/08/23 08:24 Pulse Ox 95 10/08/23 08:24 O2 Del Method Room Air 10/08/23 09:21 Testing Laboratory Results 10/08/23 06:03 10/08/23 06:03 PT 11.3 Seconds (9.0-12.0) 10/08/23 06:03 INR 1.0 (0.9-1.1) 10/08/23 06:03 APTT 25 Seconds (21-31) 10/07/23 12:40 Blood Type A Positive 10/07/23 19:48 Antibody Screen NEGATIVE 10/07/23 19:48 Electrocardiogram Date: 10/07/23 Sinus rhythm with occasional Premature ventricular complexes, rate 68 bpm Left axis deviation Incomplete right bundle branch block Abnormal ECG When compared with ECG of 04-OCT-2023 18:20, Premature ventricular complexes are now Present Confirmed by Daniel Hogan ([id number]) on 10/07/2023 9:23:30 PM
[2023-10-08] MEDS ORDERED: ONDANSETRON INJ 2 MG/ML 2 ML VIAL ONE (10:34)
[2023-10-08] MEDS ORDERED: GLYCOPYRROLATE 0.2 MG/ML VIAL ONE (10:34)
[2023-10-08] MEDS ORDERED: PROPOFOL IV EMULSION 10 MG/ML 20 ML VIAL IV ONE (10:34)
[2023-10-08] MEDS ORDERED: LIDOCAINE 2% 2 ML VIAL/AMP(20MG/ML) INFIL ONE (10:34)
[2023-10-08] MEDS ORDERED: ATROPINE SULFATE 0.1 MG/ML 10ML SYR IV PRN (11:23)
[2023-10-08] MEDS ORDERED: ePHEDrine sulfate 50 MG/ML AMP IV PRN (11:23)
--- NOTE | 2023-10-08 11:51 | GI REPORT ---
[facility] [address] Patient: GUME SILVA : 1945 Sex at : Male Age: 78 Years Procedure: Upper GI endoscopy Date: 10/08/2023 Attending Physician: Carli Arrieta MD Referring MD: Referred Self Indications: - Recent gastrointestinal bleeding Medications: - Monitored Anesthesia Care - Propofol per Anesthesia - See the Anesthesia note for documentation of the administered medications Complications: - No immediate complications. Estimated Blood Loss: - Estimated blood loss: None. Procedure: - ASA Grade Assessment: III - A patient with severe systemic disease. - The egd scope was introduced through the mouth and advanced to the second part of the duodenum. - The upper GI endoscopy was accomplished without difficulty. - The patient tolerated the procedure well. Findings: - The examined esophagus was normal. - A medium-sized, submucosal, non-circumferential mass with no bleeding and no stigmata of recent bleeding was found in the gastric body. There was a very small, nonbleeding erosion at the base of this lesion as well as one to the side. - The exam of the stomach was otherwise normal. - The examined duodenum was normal. Impression: - Normal esophagus. 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 - Normal examined duodenum. - No specimens collected. Recommendation: - Return patient to [facility] for ongoing care. - Perform an upper endoscopic ultrasound (UEUS) at appointment to be scheduled. Procedure Code(s): - 80877, Esophagogastroduodenoscopy, flexible, transoral; diagnostic, including collection of specimen(s) by brushing or washing, when performed (separate procedure) Diagnosis Code(s): - K92.2, Gastrointestinal hemorrhage, unspecified - D49.0, Neoplasm of unspecified behavior of digestive system CPT(R) - 2023 copyright [employer]. All Rights Reserved. The CPT codes, CCI edits and ICD codes generated are intended as suggestions and were generated based on input data. These codes are preliminary and upon solution advisor review may be revised to meet current compliance and payer requirements. The provider is responsible for the final determination of appropriate codes, and modifiers. Dr. Carli Arrieta MD This document has been electronically signed. Note Initiated:10/08/2023 Note Completed:10/08/2023 11:[address] Carli Arrieta MD This document has been electronically signed. Note Amended:10/08/2023 11:51 AM [email or web address]\[email or web address]\[id number]
--- NOTE | 2023-10-08 11:56 | Communication Note ---
Date of Service: October 08, 2023 EGD with no blood or active bleeding. Submucosal lesion present with two tiny erosions associated with it. Neither bleeding. Needs EUS as an outpatient. Will start liquids. Can restart anticoagulation carefully. May need small bowel capsule study as an outpatient
--- NOTE | 2023-10-08 12:04 | Anesthesiology Progress Note ---
Date of Service October 08, 2023 Anesthesia Post Procedure Vital Signs Vital Signs: Temp Pulse Pulse Pulse Resp BP BP 10/08/23 11:50 73 22 119/73 10/08/23 11:44 97.0 F L 71 23 132/77 10/08/23 10:15 97.9 F 60 18 179/85 H 10/08/23 09:21 10/08/23 08:24 98.1 F 60 20 166/90 H 10/08/23 07:10 80 10/08/23 02:07 97.5 F L 67 16 164/87 H 10/07/23 22:59 62 10/07/23 22:54 97.9 F 75 18 171/89 H 10/07/23 20:13 10/07/23 19:04 97.5 F L 65 16 173/89 H 10/07/23 16:49 70 10/07/23 16:00 77 20 10/07/23 14:15 63 179/95 H 10/07/23 12:45 10/07/23 12:45 18 10/07/23 12:42 66 10/07/23 12:20 97.9 F 77 18 170/87 H Pulse Ox O2 Del Method O2 Flow Rate 10/08/23 11:50 95 Nasal Cannula 2 10/08/23 11:44 94 Nasal Cannula 2 10/08/23 10:15 95 Room Air 10/08/23 09:21 Room Air 10/08/23 08:24 95 Room Air 10/08/23 07:10 10/08/23 02:07 92 Room Air 10/07/23 22:59 10/07/23 22:54 99 Room Air 10/07/23 20:13 Room Air 10/07/23 19:04 95 Room Air 10/07/23 16:49 10/07/23 16:00 98 Room Air 10/07/23 14:15 95 Room Air 10/07/23 12:45 Room Air 10/07/23 12:45 10/07/23 12:42 10/07/23 12:20 96 Room Air Transfer of Care Handoff Completed per policy Notes Mental Status: alert / awake / arousable and participated in evaluation Patient Amnestic to Procedure: Yes Nausea / Vomiting: adequately controlled Pain: adequately controlled Airway Patency, RR, SpO2: stable & adequate BP & HR: stable & adequate Hydration State: stable & adequate Anesthetic Complications: no major complications apparent and Pt Satisfied with anesthetic care
--- NOTE | 2023-10-08 12:14 | Hospitalist Progress Note ---
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 Seen in on 10/04/2023 for rectal bleeding. At that time had Hgb of 15 and INR of 2.6 and was given Vitamin K 5mg po. Warfarin has been held. Still taking 81mg aspirin. He is being managed for the following: Likely UGI bleed: Suspect upper GI bleed with melena at presentation. +Hemoccult stool in ER of dark red tinge color stool reported Admitting Hb 12.3/INR 1.1, now Hb 11.7 c/w iv ppi GI evaled, s/p EGD 10/07 - nl esophagus, submucosal lesion in the gastric body w/ 2 tiny erosions associated with it, nl duodenum, no specimens collected. Recommends OP UEUS. Clears and coumadin can be started. May need WCE as OP. Monitor H&H, transfuse blood for symptomatic anemia or hemoglobin less than 7. History of DVT (deep vein thrombosis): History of pulmonary embolus (PE): Reported history DVT and PE in 2007. IVC Filter in place Chronically anticoagulated on warfarin Patient thinks had coagulable workup in past but no records available Warfarin initiated, f/u pt/inr HTN (hypertension): Continue valsartan-HCTZ DVT Prophylaxis: SCDs Dispo: med/tele Full Code Follows with Dr Luis Buchanan in [place], [place] for routine care Updated pt's son Ismael ([phone]) over the phone, answered all his questions, he verbalized understanding and was agreeable to plan of care. Admission and Anticipated Discharge Date Admission Date: October 07, 2023 Subjective Patient was seen and examined at bedside. Patient was lying in bed, on room air, NAD, resting comfortably. Patient reports brown bowel movement/less darker color. Physical Exam Physical Exam: General: no distress, obese elderly male Head: normocephalic, atraumatic Eyes: conjunctiva non-injected, anicteric ENT: normal inspection external ears, nose, mucous membranes moist Neck: supple, trachea midline Lungs: clear, no respiratory distress, no wheezing/rhonchi/rales CV: RRR, no murmur, no pretibial edema Abd: protuberant, normal BS, soft, non-tender Ext: no cyanosis, no calf tenderness Neuro: A&O x 3, no focal deficits noted, normal affect Skin: warm, dry Results & Data Results & Data Vital Signs (Past 12 Hours) Vital Signs Temp Pulse Pulse Pulse Resp BP Pulse Ox 10/08/23 12:00 70 16 130/72 96 10/08/23 11:50 73 22 119/73 95 10/08/23 11:44 36.1 C L 71 23 132/77 94 10/08/23 10:15 36.6 C 60 18 179/85 H 95 10/08/23 09:21 10/08/23 08:24 36.7 C 60 20 166/90 H 95 10/08/23 07:10 80 10/08/23 02:07 36.4 C L 67 16 164/87 H 92 O2 Del Method O2 Flow Rate 10/08/23 12:00 Nasal Cannula 2 10/08/23 11:50 Nasal Cannula 2 10/08/23 11:44 Nasal Cannula 2 10/08/23 10:15 Room Air 10/08/23 09:21 Room Air 10/08/23 08:24 Room Air 10/08/23 07:10 10/08/23 02:07 Room Air
[2023-10-08 14:31] LABS: Hematocrit (blood only) 35.3 % (42.0-52.0); Hemoglobin 11.8 g/dl (14.0-18.0)
[2023-10-08] MEDS: WARFARIN SOD 7.5 MG TAB PO SCH (16:13)
[2023-10-09 06:47] LABS: Hematocrit (blood only) 35.9 % (42.0-52.0); Hemoglobin 11.9 g/dl (14.0-18.0); Mean Corpuscular Hemoglobin 30.3 pg (25.0-34.0); Mean Corpuscular Hgb Conc 33.1 g/dL (32.0-36.0); Mean Corpuscular Volume 91.3 fL (80.0-100.0); Mean Platelet Volume 9.8 fL (9.4-12.4); Platelet Count 188 K/uL (130-400); RDW Standard Deviation 42.9 fL (36.4-46.3); Red Blood Count 3.93 M/uL (4.70-6.10); White Blood Count 6.66 K/ul (4.8-10.8)
[2023-10-09 07:12] LABS: BUN Creatinine Ratio 8.7 (10-20); Calcium 8.4 mg/dl (8.6-10.3); Creatinine Clr Calc Pharmacy 67.7 ml/min; Est GFR (African American) 79.1 ml/min; Est GFR (Non-African American) 68.3 ml/min; Phosphorus 3.5 mg/dl (2.5-4.9); Potassium 3.7 mmol/L (3.5-5.1)
[2023-10-09 07:21] LABS: Prothrombin Time 11.3 Seconds (9.0-12.0)
[2023-10-09 09:47] LABS: Basophils # (auto) 0.03 K/uL (0.00-0.20); Basophils % (auto) 0.4 %; Eosinophils # (auto) 0.36 K/uL (0.00-0.50); Hematocrit (blood only) 38.8 % (42.0-52.0); Hemoglobin 12.7 g/dl (14.0-18.0); Immature Granulocytes # (auto) 0.05 K/uL (0.01-0.20); Immature Granulocytes % (auto) 0.7 %; Lymphocytes % (auto) 16.5 %; Mean Corpuscular Hemoglobin 30.1 pg (25.0-34.0); Mean Corpuscular Hgb Conc 32.7 g/dL (32.0-36.0); Mean Corpuscular Volume 91.9 fL (80.0-100.0); Mean Platelet Volume 9.7 fL (9.4-12.4); Monocytes # (auto) 0.53 K/uL (0.11-0.59); Monocytes % (auto) 7.3 %; Neutrophils # (auto) 5.09 K/uL (1.40-6.50); Neutrophils % (auto) 70.1 %; Platelet Count 205 K/uL (130-400); RDW Coefficient of Variation 13.1 % (11.5-14.5); RDW Standard Deviation 43.6 fL (36.4-46.3); Red Blood Count 4.22 M/uL (4.70-6.10); White Blood Count 7.26 K/ul (4.8-10.8)
[2023-10-09] MEDS: VALSARTAN/HCTZ 320/12.5 MG TAB PO SCH (09:53)
[2023-10-09] MEDS: PANTOprazole 40 MG TAB PO SCH (09:53)
[2023-10-09] MEDS: HEPARIN SODIUM/DEXTROSE 25,000 UNITS/500 ML BAG IV SCH (10:02)
--- NOTE | 2023-10-09 10:02 | Gastroenterology Progress Note ---
Date of Service October 09, 2023 Assessment & Plan (1) GI bleed: Plan: He is doing well now. Apparently getting ready to get anticoagulated again. Will advance diet. I explained findings on procedure to him. Admission and Anticipated Discharge Date Admission Date: October 07, 2023 Subjective Doing well. Dark brown stool with "blood tinge". No pain. No active bleeding H/H are stable Physical Exam Physical Exam: He looks well Results & Data Vital Signs (Past 12 Hours) Vital Signs Temp Pulse Pulse Resp BP Pulse Ox O2 Del Method 10/09/23 07:32 36.5 C 61 18 135/87 90 Room Air 10/09/23 07:11 59 L 10/09/23 03:01 36.6 C 61 16 133/72 92 Room Air 10/09/23 00:00 36.9 C 65 18 136/65 92 Room Air 10/08/23 23:07 57 L
[2023-10-09 10:14] LABS: Partial Thromboplastin Time 26 Seconds (21-31)
[2023-10-09] MEDS: Heparin IV Adult Wt-Based Low-Dose *NO* INITIAL Bolus Protocol IV STA (10:24)
--- NOTE | 2023-10-09 16:18 | Hospitalist Progress Note ---
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 Seen in on 10/04/2023 for rectal bleeding. At that time had Hgb of 15 and INR of 2.6 and was given Vitamin K 5mg po. Warfarin has been held. Still taking 81mg aspirin. He is being managed for the following: Likely UGI bleed: Suspect upper GI bleed with melena at presentation. +Hemoccult stool in ER of dark red tinge color stool reported Admitting Hb 12.3/INR 1.1, now Hb 11.7 c/w iv ppi to po ppi today. GI evaled, s/p EGD 10/07 - nl esophagus, submucosal lesion in the gastric body w/ 2 tiny erosions associated with it, nl duodenum, no specimens collected. Recommends OP UEUS. Clears and coumadin can be started. May need WCE as OP. Monitor H&H, transfuse blood for symptomatic anemia or hemoglobin less than 7. Pt on heparin bridge, coumadin started 10/07. if no bleeding by fran and HnH stabl e, then possibly dc on lovenox bridge. pt is comfortable w/ lovenox shot, he reports he has done in the past. History of DVT (deep vein thrombosis): History of pulmonary embolus (PE): Reported history DVT and PE in 2007. IVC Filter in place Chronically anticoagulated on warfarin Patient thinks had coagulable workup in past but no records available Warfarin initiated, f/u pt/inr HTN (hypertension): Continue valsartan-HCTZ DVT Prophylaxis: SCDs Dispo: med/tele Full Code Follows with Dr Luis Buchanan in [place], [place] for routine care Updated pt's son Ismael ([phone]) over the phone, answered all his questions, he verbalized understanding and was agreeable to plan of care. Admission and Anticipated Discharge Date Admission Date: October 07, 2023 Subjective Patient was seen and examined at bedside. Patient was lying in bed, on room air, NAD, resting comfortably. Patient reports brown bowel movement/minimal blood tinge. Physical Exam Physical Exam: General: no distress, obese elderly male Head: normocephalic, atraumatic Eyes: conjunctiva non-injected, anicteric ENT: normal inspection external ears, nose, mucous membranes moist Neck: supple, trachea midline Lungs: clear, no respiratory distress, no wheezing/rhonchi/rales CV: RRR, no murmur, no pretibial edema Abd: protuberant, normal BS, soft, non-tender Ext: no cyanosis, no calf tenderness Neuro: A&O x 3, no focal deficits noted, normal affect Skin: warm, dry Results & Data Results & Data Vital Signs (Past 12 Hours) Vital Signs Temp Pulse Pulse Resp BP Pulse Ox O2 Del Method 10/09/23 15:13 36.8 C 62 18 127/67 91 Room Air 10/09/23 15:04 61 10/09/23 11:16 36.5 C 58 L 18 121/73 93 Room Air 10/09/23 07:32 36.5 C 61 18 135/87 90 Room Air 10/09/23 07:11 59 L
[2023-10-09] MEDS: HEPARIN IV BOLUS 3,000 UNITS in SYRINGE 0 ML IV ONE (17:16)
[2023-10-09 23:37] LABS: ANTI-Xa, UFH(UnfractionatedHep 0.27 IU/ml (0.3-0.7)
[2023-10-10 06:34] LABS: ANTI-Xa, UFH(UnfractionatedHep 0.27 IU/ml (0.3-0.7)
[2023-10-10 06:35] LABS: INR 1.1 (0.9-1.1); Prothrombin Time 11.4 Seconds (9.0-12.0)
[2023-10-10] MEDS: ENOXAPARIN INJ 120 MG/0.8 ML SYR SQ SCH (09:38)
--- NOTE | 2023-10-10 09:49 | Discharge Summary ---
Date of Service October 10, 2023 Admission HPI Per Admitting Provider Patient is 78-year-old male with PMH history DVT/PE in 2007 on chronic on warfarin, history IVC filter, HTN presented to ER with c/o rectal bleeding. Patient is from out of town and is here camping. Patient states several days ago started with sensation of needing to have BM and it was dark in coloration and loose with very little stool reported. Per chart review was seen at [facility] ER on 10/04/2023 for rectal bleeding. At that time had Hgb of 15 and INR of 2.6. Was hypertensive, otherwise vital stable. Patient was given 5 mg oral vitamin K and decision was made for discharge home. He has held his Coumadin and has continued aspirin 81mg daily. Reports on aspirin as preventative. Denies recent NSAID use. States initially was having dark almost tarry like movements every 5 hours but feels things have lessened. Reports ongoing dark red and less black noted on toilet paper with wiping. Is not coloring toilet water now. He feels there is more stool mixed in than earlier in the week. Denies any abdominal pain or rectal pain. Denies indigestion symptoms. Reports approximately 3 years ago had bright red blood per rectum and was sent to [facility] in [place] and states had colonoscopy that time and states was "ok" and states did not require blood transfusion. He is unsure if has had EGD in past. Denies fever/chills, diaphoresis, N/V, SIMPSON, dizziness, syncope, vision changes, neck pain, CP, SOB, orthopnea, palpitations, cough, rhinorrhea, paresthesias, weakness, extremity edema, rashes, dysuria, hematuria. Admission Exam Per Admitting Provider General: no distress, obese elderly male Head: normocephalic, atraumatic Eyes: conjunctiva non-injected, anicteric ENT: normal inspection external ears, nose, mucous membranes moist Neck: supple, trachea midline Lungs: clear, no respiratory distress, no wheezing/rhonchi/rales CV: RRR, no murmur, no pretibial edema Abd: protuberant, normal BS, soft, non-tender Ext: no cyanosis, no calf tenderness Neuro: A&O x 3, no focal deficits noted, normal affect Skin: warm, dry Principal Diagnosis Likely UGI bleed History of DVT and PE on Coumadin Discharge Exam General: no distress, obese elderly male Head: normocephalic, atraumatic Eyes: conjunctiva non-injected, anicteric ENT: normal inspection external ears, nose, mucous membranes moist Neck: supple, trachea midline Lungs: clear, no respiratory distress, no wheezing/rhonchi/rales CV: RRR, no murmur, no pretibial edema Abd: protuberant, normal BS, soft, non-tender Ext: no cyanosis, no calf tenderness Neuro: A&O x 3, no focal deficits noted, normal affect Skin: warm, dry Discharge Data Allergies Allergy/AdvReac Type Severity Reaction Status Date / Time No Known Allergies Allergy Unverified 10/04/23 20:36 Consultations 10/07/23 14:27 ED Decision to Admit Stat 10/07/23 18:57 Consult Gastroenterology Routine Procedures Performed Operation Date: 10/08/23 11:00 Actual Procedures p Esophagogastroduodenoscopy(Not Applicable) - Carli Arrieta Jr, MD Ordered Studies 10/07/23 13:16 CT abd pelvis IV con only Stat Hospital Course (1) GI bleed: Plan 78-year-old male with 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 Seen in on 10/04/2023 for rectal bleeding. At that time had Hgb of 15 and INR of 2.6 and was given Vitamin K 5mg po. Warfarin has been held. Still taking 81mg aspirin. He was managed for the following: Likely UGI bleed: Suspect upper GI bleed with melena at presentation. +Hemoccult stool in ER of dark red tinge color stool reported HnH stable, pt w/ brown bms lately per pt. c/w PPI bid GI evaled, s/p EGD 10/07 - nl esophagus, submucosal lesion in the gastric body w/ 2 tiny erosions associated with it, nl duodenum, no specimens collected. Recommends OP UEUS. Clears and coumadin can be started. May need WCE as OP. Monitor H&H, transfuse blood for symptomatic anemia or hemoglobin less than 7. Pt on heparin bridge, coumadin started 10/07. HnH stable, pt will be discharged on lovenox bridge and warfarin. pt and his at bedside is strictly advised to f/u w/ coumadin check at his pcp office in 2 days time and further recs from coumadin clinic. History of DVT (deep vein thrombosis): History of pulmonary embolus (PE): Reported history DVT and PE in 2007. IVC Filter in place Chronically anticoagulated on warfarin Patient thinks had coagulable workup in past but no records available Warfarin initiated, f/u pt/inr HTN (hypertension): Continue valsartan-HCTZ DVT Prophylaxis: SCDs Dispo: med/tele Full Code Follows with Dr Luis Buchanan in [place], [place] for routine care Patient being discharged home with following instruction at the point of discharge: Follow-up with your primary care physician within a week time and likely you will need labs CBC/CMP/magnesium/phosphorus. You will need PT/INR checked in 2 days time upon discharge. This is very important. You will be discharged with 3 days worth of Lovenox shots. Continue to take your Coumadin as prior. Call your PCP office to set up Coumadin check in 2 days time. You will need GI doctors evaluation in 1 to 2 weeks time of discharge, you will likely benefit from outpatient upper endoscopic ultrasound and possible wireless capsule endoscopy. Take your medications as prescribed. Please make sure that you are able to get your medications today by calling your pharmacy before you leave the hospital so that your treatment continuity is not broken. Home Health Attestation I certify that this patient is under my care and that I, or a physicians assistant credit manager working with me, had a face to-face encounter that meets the home health [id number] encounter requirements with this patient. The encounter with the patient was in whole, or in part, for the following medical condition, which is the primary reason for home health care (list medic al condition): I certify that, based on my findings, the following services are medically necessary home health services: My clinical findings support the need for the above services because: Further, I certify that my clinical findings support that this patient is homebound (i.e. absences from home require considerable and taxing effort and are for medical reasons or gnosticism services or infrequently or of short duration when for other reasons) because: Certification for Home Health Services: Based on the above findings, I certify that this patient is confined to the home and needs intermittent fdc care, physical therapy and/or speech therapy or continues to need occupational therapy. The patient is under my care, and I have initiated the establishment of the plan of care. This patient will be followed by a physician who will periodically review the plan of care. Total Time Total Time Spent Total Time Spent (In Minutes): 45 Discharge Plan Discharge Items Patient Disposition: Home - Self-Care Reason For Visit: GI BLEED Discharge Diagnosis: Likely UGI bleed History of DVT and PE on Coumadin Activity: Resume your previous activity Non-emergency contact: Primary Care Provider Call non-emergency contact if: you have any medication questions and your symptoms worsen Follow-up/Referrals: Luis Buchanan D.O. [Primary Care Provider] - Diet: Heart Healthy Addtl Attending Provider Instructions: Follow-up with your primary care physician within a week time and likely you will need labs CBC/CMP/magnesium/phosphorus. You will need PT/INR checked in 2 days time upon discharge. This is very important. You will be discharged with 3 days worth of Lovenox shots. Continue to take your Coumadin as prior. Call your PCP office to set up Coumadin check in 2 days time. You will need GI doctors evaluation in 1 to 2 weeks time of discharge, you will likely benefit from outpatient upper endoscopic ultrasound and possible wireless capsule endoscopy. Take your medications as prescribed. Please make sure that you are able to get your medications today by calling your pharmacy before you leave the hospital so that your treatment continuity is not broken. Pending Studies at Discharge: No Stand-Alone Forms: [facility], Smoking Cessation Medications and DC Order Prescriptions: New enoxaparin [Lovenox] 120 mg/0.8 mL Syringe 111 mg subcut Q12H 3 Days Qty: 4.44 0RF pantoprazole 40 mg Tablet,Delayed Release (Dr/Ec) 40 mg PO BID Qty: 60 0RF Continued warfarin [Jantoven] 5 mg tablet 7.5 mg PO UD Rx Instructions: Takes 7.5mg on mon, wed, th, sat, sun warfarin [Jantoven] 5 mg tablet 10 mg PO UD Rx Instructions: 10mg on , Frid valsartan-hydrochlorothiazide [Diovan HCT] 320-12.5 mg tablet 1 tab PO DAILY solifenacin 10 mg tablet 10 mg PO PM cholecalciferol (vitamin D3) 1,250 mcg (50,000 unit) capsule 1,250 mcg PO WK aspirin 81 mg Tablet,Delayed Release (Dr/Ec) 81 mg PO PM Discharge Orders: Discharge Order (Routine); Ordered 10/10/23 Ordered By: Gab Morales Admission Data Admit Date/Time: 10/07/23 15:08 Attending Provider: Gab Morales Admit Provider: Minoo Campa Primary Care Provider: Luis Buchanan Other Providers: Minoo Campa; Tyson Brown
[2023-10-11] MEDS ORDERED: WARFARIN SOD 10 MG TAB PO SCH (16:00)
== END 2023-10-10 11:06 | disposition home or self-care (01) | DRG 378 ==
LOC: ED 12:15 → 2N 15:08 → SUATTDRO 15:08 → 2N 17:45